=== PATIENT | male | born 1950 | race Caucasian/White ===

== ENCOUNTER 2020-06-05 14:20 | Emergency (ER) | payer MEDICARE ==
[~2020-06-05] VITALS: Ht 172.7 cm; Wt 74.8 kg
[2020-06-05] MEDS ORDERED: CRUTCH2 XX (17:29)
[2020-06-05] MEDS ORDERED: Percocet 5-3251 EACH PO (17:29)
== END 2020-06-05 17:50 | disposition home or self-care (01) ==
LOC: ER 14:20
DX: S82.831A Other fracture of upper and lower end of right fibula, initial encounter for closed fracture (principal); S09.90XA Unspecified injury of head, initial encounter; R55 Syncope and collapse; Z88.5 Allergy status to narcotic agent; W18.30XA Fall on same level, unspecified, initial encounter; Y93.01 Activity, walking, marching and hiking
CPT/HCPCS: 70450; 73610; 93005; 93010; 99284-25